=== PATIENT | male | born 1960 | race Caucasian/White ===

== ENCOUNTER 2019-05-21 06:52 | Day surgery (SDC) | payer OTHER ==
[~2019-05-21] VITALS: Ht 172 cm; Wt 93.0 kg
[2019-05-21] MEDS ORDERED: LIDOCAINE 2% 100 MG/5 ML UJET TP ONE (08:31)
[2019-05-21] MEDS ORDERED: fentaNYL 0.05 MG/ML VIAL ONE (08:31)
== END 2019-05-21 09:42 | disposition home or self-care (01) ==
LOC: MOR 06:52 → MMU 06:53 → MOR 09:42
PROVIDERS: ATTEND Internal Medicine Gastroenterology
DX: Z12.11 Encounter for screening for malignant neoplasm of colon (principal); D12.7 Benign neoplasm of rectosigmoid junction; K57.30 Diverticulosis of large intestine without perforation or abscess without bleeding; E11.9 Type 2 diabetes mellitus without complications; E66.9 Obesity, unspecified; Z79.84 Long term (current) use of oral hypoglycemic drugs; Z98.890 Other specified postprocedural states; Z79.899 Other long term (current) drug therapy; Z68.33 Body mass index [BMI] 33.0-33.9, adult
CPT/HCPCS: 45385; J3010